=== PATIENT | female | born 1985 | race Caucasian/White ===

== ENCOUNTER 2016-11-06 08:20 | Outpatient (CLI) | payer OTHER ==
[~2016-11-06] VITALS: Ht 162.6 cm; Wt 95.0 kg
[2016-11-06 08:27] VITALS: BP 114/68
== END 2016-11-06 10:20 | disposition home or self-care (01) ==
LOC: LDOP 08:20
PROVIDERS: ATTEND Obstetrics & Gynecology
DX: O26.893 Other specified pregnancy related conditions, third trimester (principal); R10.9 Unspecified abdominal pain; Z3A.39 39 weeks gestation of pregnancy
CPT/HCPCS: 59025; 99211; G0463

== ENCOUNTER 2016-11-12 18:55 | Outpatient (CLI) | payer OTHER ==
[~2016-11-12] VITALS: Ht 162.6 cm; Wt 95.0 kg
[2016-11-12] MEDS ORDERED: NITROFURANTOIN (MACROBID) 100 MG CAPSULE ONE (20:24)
[2016-11-12] MEDS ORDERED: NITROFURANTOIN (MACROBID) 100 MG CAPSULE PO ONE (20:30)
[2016-11-12] MEDS ORDERED: LACTATED RINGERS 1,000 ML IV SCH (21:43)
[2016-11-12] MEDS ORDERED: OXYTOCIN 30U/ 0.9% NaCL 500ML 500 ML IV ONE (21:43)
[2016-11-12] MEDS ORDERED: D5%-LACTATED RINGERS 1,000 ML IV SCH (21:43)
[2016-11-12] MEDS ORDERED: NEWBORN KIT ONE (21:46)
[2016-11-12] MEDS ORDERED: OXYTOCIN 30U/ 0.9% NaCL 500ML 500 ML ONE (21:47)
[2016-11-12] MEDS ORDERED: FENTANYL PF 100 MCG/2ML ONE (21:47)
[2016-11-12] MEDS ORDERED: ONDANSETRON 2MG/ML, 2ML IVPush PRN (22:00)
[2016-11-12] MEDS ORDERED: FENTANYL PF 100 MCG/2ML IV PRN (22:00)
[2016-11-12] MEDS ORDERED: TERBUTALINE 1 MG/ML, 1ML IVPush PRN (22:00)
[2016-11-12] MEDS ORDERED: CALCIUM CARBONATE 500 MG TAB.CHEW PO PRN (22:00)
[2016-11-12] MEDS ORDERED: FENTANYL PF 100 MCG/2ML IVPush PRN (22:00)
== END 2016-11-12 21:02 | disposition home or self-care (01) ==
LOC: LDOP 18:55
PROVIDERS: ATTEND Student in an Organized Health Care Education/Training Program
DX: O26.893 Other specified pregnancy related conditions, third trimester (principal); R42 Dizziness and giddiness; Z3A.36 36 weeks gestation of pregnancy
CPT/HCPCS: 59025; 81001; 99211; G0463

== ENCOUNTER 2016-11-17 14:54 | Inpatient (IN) | payer OTHER ==
[~2016-11-17] VITALS: Ht 162.6 cm; Wt 95.4 kg
[2016-11-21] MEDS ORDERED: OXYTOCIN 30U/ 0.9% NaCL 500ML 500 ML IV ONE (00:55)
[2016-11-21] MEDS ORDERED: OXYTOCIN 30U/ 0.9% NaCL 500ML 500 ML IV PRN ×2 (00:55→10:24)
[2016-11-21] MEDS ORDERED: TERBUTALINE 1 MG/ML, 1ML IVPush PRN (01:00)
[2016-11-21] MEDS ORDERED: SODIUM CHLORIDE FLUSH 10ML SYR IVF PRN (01:00)
[2016-11-21] MEDS ORDERED: FENTANYL PF 100 MCG/2ML IV PRN (01:00)
[2016-11-21] MEDS ORDERED: SODIUM CITRATE/CITRIC ACID 30 ML UDC PO PRN (01:00)
[2016-11-21] MEDS ORDERED: ONDANSETRON 2MG/ML, 2ML IVPush PRN ×2 (01:00→21:00)
[2016-11-21] MEDS ORDERED: MISOPROSTOL 25 MCG TABLET ONE ×2 (01:15→06:03)
[2016-11-21] MEDS: MISOPROSTOL 25 MCG TABLET VG PRN ×2 (01:20→06:12)
[2016-11-21 01:21] LABS: HEMATOCRIT 34.2 % (34.6-47.8); HEMOGLOBIN 11.7 g/dL (11.7-16.4); WHITE BLOOD COUNT 8.8 x10^3/uL (3.4-10)
[2016-11-21] MEDS ORDERED: NEWBORN KIT ONE (02:43)
[2016-11-21] MEDS ORDERED: PREN1TAB60 PO (02:48)
[2016-11-21] MEDS ORDERED: ONDA4TAB7 PO (02:49)
[2016-11-21] MEDS ORDERED: MISOPROSTOL 200 MCG TABLET ONE (03:25)
[2016-11-21] MEDS ORDERED: OXYTOCIN 30U/ 0.9% NaCL 500ML 500 ML ONE ×2 (03:25→22:30)
[2016-11-21] MEDS ORDERED: LIDOCAINE 1%, 20ML ONE (03:25)
[2016-11-21 10:10] VITALS: BP 114/61
[2016-11-21] MEDS: LACTATED RINGERS 1,000 ML IV SCH ×3 (10:54→22:40)
[2016-11-21] MEDS ORDERED: FENTANYL PF 100 MCG/2ML ONE ×3 (18:32→20:02)
[2016-11-21] MEDS: FENTANYL PF 100 MCG/2ML IVPush PRN ×2 (18:38→19:43)
[2016-11-21] MEDS ORDERED: ONDANSETRON 2MG/ML, 2ML ONE (19:23)
[2016-11-21] MEDS ORDERED: FENTANYL/BUPIV./NS/PF 250 ML EPIDCONT ONE (20:02)
[2016-11-21] MEDS ORDERED: BUPIVACAINE 0.25% ONE (20:02)
[2016-11-21] MEDS ORDERED: LIDOCAINE/PF 1.5%-EPI 1:200K, 30ML ONE (20:10)
[2016-11-21] MEDS: FENTANYL/BUPIV./NS/PF 250 ML EPIDCONT SCH (20:51)
[2016-11-21] MEDS ORDERED: LACTATED RINGERS 1,000 ML IV SCH (20:51)
[2016-11-21] MEDS ORDERED: LACTATED RINGERS 1,000 ML IVBOLUS PRN (21:00)
[2016-11-21] MEDS ORDERED: EPHEDRINE 50 MG/ML, 1ML IVPush PRN (21:00)
[2016-11-21 21:30] VITALS: BP 103/53
[2016-11-22] MEDS ORDERED: TERBUTALINE 1 MG/ML, 1ML ONE (05:02)
[2016-11-22] MEDS ORDERED: ONDANSETRON 2MG/ML, 2ML ONE ×2 (05:43→11:07)
[2016-11-22] MEDS: D5%-LACTATED RINGERS 1,000 ML IV SCH ×2 (06:03→16:00)
[2016-11-22] MEDS: LACTATED RINGERS 1,000 ML IV SCH (13:57)
[2016-11-22] MEDS: OXYTOCIN 30U/ 0.9% NaCL 500ML 500 ML IV SCH (15:33)
[2016-11-22] MEDS ORDERED: CARBOPROST TROMETHAMINE 250 MCG/ML, 1ML IM PRN (16:00)
[2016-11-22] MEDS ORDERED: HYDROcodone/APAP 5/325 TABLET PO PRN (16:00)
[2016-11-22] MEDS ORDERED: MISOPROSTOL 200 MCG TABLET PR PRN (16:00)
[2016-11-22] MEDS ORDERED: CALCIUM CARBONATE 500 MG TAB.CHEW PO PRN (16:00)
[2016-11-22] MEDS ORDERED: ONDANSETRON 2MG/ML, 2ML IV PRN (16:00)
[2016-11-22] MEDS ORDERED: CEFAZOLIN PMX 1GM/50ML 50 ML IV ONE (16:00)
[2016-11-22] MEDS ORDERED: METHYLERGONOVINE 0.2 MG/ML IM PRN (16:00)
[2016-11-22] MEDS ORDERED: CEFAZOLIN PMX 1GM/50ML 50 ML ONE (16:04)
[2016-11-22 17:32] LABS: ABG COLLECTION SITE ARTERIAL LINE; FIO2 ROOM AIR %
[2016-11-22 17:43] LABS: HEMATOCRIT 30.7 % (34.6-47.8); HEMOGLOBIN 10.4 g/dL (11.7-16.4); WHITE BLOOD COUNT 23.9 x10^3/uL (3.4-10)
[2016-11-22 18:15] LABS: DIFF TOTAL CELLS COUNTED 100 CELL DIFF
[2016-11-22 18:17] LABS: VERIFY COUNTS? YES
[2016-11-22 18:18] LABS: ANISOCYTOSIS 1+; POLYCHROMASIA 1+
[2016-11-22] MEDS: FENTANYL/BUPIV./NS/PF 250 ML EPIDCONT SCH (20:51)
[2016-11-22 21:05] VITALS: BP 127/77
[2016-11-22 21:12] VITALS: BP 119/68
[2016-11-22] MEDS ORDERED: IBUPROFEN 600 MG TABLET ONE (23:41)
[2016-11-22] MEDS: IBUPROFEN 600 MG TABLET PO PRN (23:46)
[2016-11-23] VITALS (7 sets, daily range): BP systolic 106–128; BP diastolic 68–81
[2016-11-23] MEDS ORDERED: OMNIPAQUE 350 MG/ML, 100ML BOTTLE ONE (00:59)
[2016-11-23] MEDS: OXYTOCIN 30U/ 0.9% NaCL 500ML 500 ML IV SCH ×3 (01:33→21:33)
[2016-11-23] MEDS: D5%-LACTATED RINGERS 1,000 ML IV SCH ×2 (02:00→12:00)
[2016-11-23] MEDS: IBUPROFEN 600 MG TABLET PO PRN (05:26)
[2016-11-23 06:19] LABS: HEMATOCRIT 25.4 % (34.6-47.8); HEMOGLOBIN 8.7 g/dL (11.7-16.4)
[2016-11-23] MEDS ORDERED: PRENATAL VIT/IRON/FA 1 EACH TABLET ONE (07:53)
[2016-11-23] MEDS: HYDROcodone/APAP 5/325 TABLET PO PRN ×4 (07:55→22:08)
[2016-11-23] MEDS: DOCUSATE 100 MG CAPSULE PO PRN (07:55)
[2016-11-23] MEDS: PRENATAL VIT/IRON/FA 1 EACH TABLET PO SCH (07:55)
[2016-11-23 12:12] LABS: HEMATOCRIT 26.4 % (34.6-47.8); HEMOGLOBIN 9.2 g/dL (11.7-16.4); WHITE BLOOD COUNT 18.7 x10^3/uL (3.4-10)
[2016-11-23 12:23] LABS: BLOOD UREA NITROGEN 8 mg/dL (7-18)
[2016-11-23 12:30] LABS: ASPARTATE AMINO TRANSFERASE 26 U/L (15-37)
[2016-11-23 12:33] LABS: PROTIME 9.5 Seconds (9.6-11.5)
[2016-11-23 17:08] LABS: HEMATOCRIT 26.9 % (34.6-47.8); HEMOGLOBIN 9.3 g/dL (11.7-16.4); WHITE BLOOD COUNT 18.6 x10^3/uL (3.4-10)
[2016-11-24] VITALS: BP 114/69
[2016-11-24 04:00] VITALS: BP 122/84
[2016-11-24] MEDS: IBUPROFEN 600 MG TABLET PO PRN (04:54)
[2016-11-24] MEDS: HYDROcodone/APAP 5/325 TABLET PO PRN (04:54)
[2016-11-24 06:55] VITALS: BP 130/79
[2016-11-24] MEDS: DOCUSATE 100 MG CAPSULE PO PRN (07:31)
[2016-11-24] MEDS: PRENATAL VIT/IRON/FA 1 EACH TABLET PO SCH (07:31)
[2016-11-24] MEDS ORDERED: IBUP-1222 PO ×2 (10:00→10:01)
[2016-11-24] MEDS ORDERED: DOCU-131 PO ×2 (10:00→10:01)
[2016-11-24] MEDS ORDERED: HYDR-3240 PO (10:02)
[2016-11-24] MEDS ORDERED: FERR325T23 PO (10:03)
== END 2016-11-24 10:35 | disposition home or self-care (01) | DRG 775 ==
LOC: LDIP 11-21 00:15 → 2NW 11-23 00:30
PROVIDERS: ADMIT Student in an Organized Health Care Education/Training Program; ATTEND Student in an Organized Health Care Education/Training Program
PROC: 10E0XZZ Delivery of Products of Conception, External Approach (ICD-10-PCS; principal; 2016-11-22)
PROC: 0KQM0ZZ Repair Perineum Muscle, Open Approach (ICD-10-PCS; 2016-11-22)
PROC: 10907ZC Drainage of Amniotic Fluid, Therapeutic from Products of Conception, Via Natural or Artificial Opening (ICD-10-PCS; 2016-11-22)
DX: O48.1 Prolonged pregnancy (principal); D62 Acute posthemorrhagic anemia; D69.6 Thrombocytopenia, unspecified; O99.12 Other diseases of the blood and blood-forming organs and certain disorders involving the immune mechanism complicating childbirth; O48.0 Post-term pregnancy; Z37.0 Single live birth; O77.0 Labor and delivery complicated by meconium in amniotic fluid; O70.1 Second degree perineal laceration during delivery; O76 Abnormality in fetal heart rate and rhythm complicating labor and delivery; O99.02 Anemia complicating childbirth; Z3A.41 41 weeks gestation of pregnancy; R79.1 Abnormal coagulation profile
CPT/HCPCS: 36415; 36600; 71275; 80053; 82803; 85025; 85049; 85379; 85384; 85610; 85730; 86850; 86900; 93005; 93306; J0690; J2405; J3010; J3490; Q9967; J2590; J7120; J7121